=== PATIENT | male | born 1990 | race Two or more races ===

== ENCOUNTER 2019-10-12 11:49 | Emergency (ER) | payer SELFPAY ==
[~2019-10-12] VITALS: Ht 180.3 cm; Wt 93.2 kg
[2019-10-12] MEDS ORDERED: LORAZEPAM 2MG/ML CPJ IV ONE (12:30)
[2019-10-12] MEDS ORDERED: ONDANSETRON HCL 4MG/2ML INJ IV STA (12:50)
[2019-10-12] MEDS ORDERED: MORPHINE SULFATE 4 MG/ML CPJ (NOT FOR IM USE) IV STA (12:50)
[2019-10-12] MEDS ORDERED: DEXAMETHASONE 4MG/ML 1ML VIAL IV ONE (13:00)
[2019-10-12] MEDS ORDERED: MANNITOL 12.5G (25%) VIAL 50ML IV ONE (13:00)
[2019-10-12] MEDS ORDERED: LEVETIRACETAM 1000MG/100ML 100 ML IV ONE (13:00)
[2019-10-12 13:18] LABS: BASOPHILS % 0.8 % (0.0-2.0); EOSINOPHILS % 0.7 % (0.0-5.0); HEMATOCRIT. 45.7 % (42.0-52.0); HEMOGLOBIN. 15.9 g/dL (14.0-18.0); MEAN CORPUSCULAR HEMOGLOBIN 32.1 pg (28.0-32.0); MEAN CORPUSCULAR VOLUME 91.9 fL (80.0-94.0); MEAN PLATELET VOLUME 7.8 fl (7.4-10.4); NEUTROPHILS % 69.5 % (40.0-76.0); PLATELET 258 x1000/uL (130-400); RED BLOOD CELL COUNT 4.97 mill/uL (4.7-6.1); RED CELL DISTRIBUTION WIDTH 12.9 % (11.6-14.6)
[2019-10-12 13:28] LABS: CHLORIDE 107 mEq/L (98-107)
[2019-10-12 13:32] LABS: ETHANOL BLOOD < 10 mg/dL
[2019-10-12 13:34] LABS: INR 1.1; PROTHROMBIN TIME 10.9 sec (9.6-11.0)
[2019-10-12 13:37] LABS: LDL CHOLESTEROL 93 mg/dL (5-100)
[2019-10-12 13:38] LABS: CREATINE KINASE 160 IU/L (39-308)
[2019-10-12 14:00] VITALS: BP 131/82
[2019-10-12] MEDS ORDERED: MANNITOL 20% 62.5 ML IV SCH (14:30)
[2019-10-12] MEDS ORDERED: NICARDIPINE 40MG/200ML PREMIX 200 ML IV SCH (14:30)
[2019-10-12 15:25] LABS: CLARITY URINE CLEAR (CLEAR); COLOR URINE YELLOW (YELLOW); KETONES URINE NEGATIVE (NEGATIVE); LEUKOCYTE ESTERASE URINE NEGATIVE (NEGATIVE); NITRITE URINE NEGATIVE (NEGATIVE); OCCULT BLOOD URINE NEGATIVE (NEGATIVE); PH URINE 5.5 (4.5-8.0); PROTEIN URINE NEGATIVE (NEGATIVE); SPECIFIC GRAVITY URINE 1.023 (1.005-1.030); UROBILINOGEN URINE 0.2 E.U./dL (0.2-1.0)
[2019-10-12] MEDS ORDERED: ETOMIDATE 2MG/ML 10ML VIAL IV ONE (15:30)
[2019-10-12] MEDS ORDERED: PROPOFOL 10MG/ML 100ML 100 ML IV ONE (15:30)
[2019-10-12] MEDS ORDERED: SUCCINYLCHOLINE CHLORIDE 200MG/10ML IV ONE (15:30)
[2019-10-12 15:39] LABS: *COCAINE SCREEN URINE NEGATIVE (NEGATIVE)
[2019-10-12 15:40] LABS: *AMPHETAMINES SCREEN URINE NEGATIVE (NEGATIVE); *BENZODIAZEPINES SCREEN URINE NEGATIVE (NEGATIVE); CANNABINOID URINE SCREEN PRESUMTIVE POSITIVE (NEGATIVE); METHADONE URINE SCREEN NEGATIVE (NEGATIVE); OPIATES URINE SCREEN NEGATIVE (NEGATIVE); PHENCYCLIDINE URINE SCREEN NEGATIVE (NEGATIVE)
[2019-10-12 15:41] LABS: *BARBITURATES SCREEN URINE NEGATIVE (NEGATIVE)
== END 2019-10-12 18:03 | disposition short-term general hospital (02) ==
LOC: ER 11:49
DX: I62.9 Nontraumatic intracranial hemorrhage, unspecified (principal)
CPT/HCPCS: 36415; 70450; 70496; 71045; 80053; 80305; 80320; 81003; 82550; 82962; 83721; 84484; 85025; 85610; 93005; 96365; 96367; 96375; 99291; J1100; J1953; J2060; J2270; J2405; J2704; J2150; G0480